=== PATIENT | female | born 1995 | race Caucasian/White ===

== ENCOUNTER → 2017-08-06 | Outpatient (CLI) | payer OTHER ==
[2017-08-06 10:24] LABS: Basophils # (A) 0.1 k/uL (0-0.2); Basophils % (A) 1 %; Eosinophils # (A) 0.5 k/uL (0-0.7); Eosinophils % (A) 7 %; HCT 41.6 % (34.0-46.0); HGB 14.5 gm/dL (11.4-16.0); Lymphocytes # (A) 1.8 k/uL (1.0-4.8); Lymphocytes % (A) 28 %; MCH 30.8 pg (25.0-35.0); MCHC 34.7 g/dL (31.0-37.0); MCV 88.8 fL (80.0-100.0); Mean Platelet Volume 6.7; Monocytes # (A) 0.3 k/uL (0-1.0); Monocytes % (A) 5 %; Neutrophils # (A) 3.7 k/uL (1.3-7.7); Neutrophils % (A) 58 %; Platelet Count 331 k/uL (150-450); RBC 4.69 m/uL (3.80-5.40); RDW 11.7 % (11.5-15.5); WBC 6.5 k/uL (3.8-10.6)
[2017-08-06 11:00] LABS: ALT 65 U/L (9-52); AST 39 U/L (14-36); Albumin 4.8 g/dL (3.5-5.0); Alkaline Phosphatase 47 U/L (38-126); Anion Gap 13 mmol/L; Blood Urea Nitrogen 15 mg/dL (7-17); Carbon Dioxide 25 mmol/L (22-30); Chloride 103 mmol/L (98-107); Cholesterol 183 mg/dL (<200); Glucose 98 mg/dL (74-99); HDL Cholesterol 65 mg/dL (40-60); LDL Cholesterol,Calculated 106 mg/dL (0-99); Potassium 4.6 mmol/L (3.5-5.1); Sodium 141 mmol/L (137-145); Total Bilirubin 0.5 mg/dL (0.2-1.3); Triglycerides 58 mg/dL (<150)
[2017-08-06 11:12] LABS: T4, Free (Free Thyroxine) 1.14 ng/dL (0.78-2.19)
== END | disposition home or self-care (01) ==
LOC: LABWHC1 09:52
PROVIDERS: ATTEND Family Medicine
DX: R51 Headache (principal); F33.1 Major depressive disorder, recurrent, moderate; M79.7 Fibromyalgia; R61 Generalized hyperhidrosis
CPT/HCPCS: 36415; 80053; 80061; 84439; 84443; 85025

== ENCOUNTER 2019-11-29 19:10 | Emergency (ER) | payer BC, OTHER ==
[2019-11-29 19:28] VITALS: RESP 18; TEMP 99.1
[2019-11-29] MEDS ORDERED: KETOROLAC 60 MG/2 ML VIAL IM STA (20:07)
--- NOTE | 2019-11-29 20:31 | XR ---
EXAMINATION TYPE: XR chest 2V DATE OF EXAM: 11/29/2019 COMPARISON: 03/15/2014 HISTORY: Chest pain TECHNIQUE: Frontal and lateral views of the chest are obtained. FINDINGS: There is no focal air space opacity. No evidence for pneumothorax. No pleural effusion. The cardiac silhouette size is within normal limits. The osseous structures are grossly intact. IMPRESSION: 1. No acute cardiopulmonary process.
--- NOTE | 2019-11-29 20:32 | XR ---
EXAMINATION TYPE: XR shoulder complete RT DATE OF EXAM: 11/29/2019 CLINICAL HISTORY: pain TECHNIQUE: Three views of the right shoulder are obtained. COMPARISON: None FINDINGS: There is no acute fracture/dislocation evident. The acromioclavicular and glenohumeral travis int spaces appear within normal limits. The visualized ribs are intact and unremarkable. IMPRESSION: 1. There is no acute fracture or dislocation. ICD 10 NO FRACTURE, INITIAL EVALUATION
--- NOTE | 2019-11-29 20:37 | XR ---
EXAMINATION TYPE: XR clavicle RT DATE OF EXAM: 11/29/2019 CLINICAL HISTORY: pain TECHNIQUE: 2 views of the right clavicle are submitted. COMPARISON: None FINDINGS: Mildly angulated fracture of the middle one third of the right clavicle. The acromioclavicu lar and glenohumeral joint spaces appear within normal limits. The visualized ribs are intact and un remarkable. IMPRESSION: 1. Mildly angulated fracture of the middle one third of the right clavicle. ICD 10 closed FRACTURE, INITIAL EVALUATION
[2019-11-29] MEDS ORDERED: HYDROcodone/APAP 5-325MG 1 EACH TAB PO STA (21:12)
--- NOTE | 2019-11-29 21:15 | ED ---
Fall HPI - General Chief Complaint: Fall Stated Complaint: Fall, Shoulder injury Time Seen by Provider: 11/29/19 19:35 Source: patient Mode of arrival: ambulatory - History of Present Illness Initial Comments: Patient is a 24-year-old female who was riding her horse as it was walking when it got spooked by a rabbit. She reports that the horse bucked and she fell off onto her right shoulder. The patient is right-hand dominant. Began having pain along the right clavicle. Denies hitting her head or losing consciousness. Denies any neck or back pain. No chest pain or shortness of breath. Denies any numbness, tingling or weakness in her hand. No elbow or wrist pain. Did not take anything for her pain prior to coming into the emergency room. No other alleviating, precipitating or modifying factors - Related Data Home Medications Medication Instructions Recorded Confirmed Pregabalin [Lyrica] 100 mg PO TID PRN 11/29/19 11/29/19 Previous Rx's Medication Instructions Recorded Hydrocodone/Acetaminophen [[place] 1 tab PO Q6HR PRN #12 tab 11/29/19 5-325] Allergies Allergy/AdvReac Type Severity Reaction Status Date / Time No Known Allergies Allergy Verified 11/29/19 21:04 Review of Systems ROS Statement: Those systems with pertinent positive or pertinent negative responses have been documented in the HPI. ROS Other: All systems not noted in ROS Statement are negative. Past Medical History Past Medical History: Fibromyalgia History of Any Multi-Drug Resistant Organisms: None Reported Past Surgical History: No Surgical Hx Reported Past Psychological History: Depression Smoking Status: Never smoker Past Alcohol Use History: Occasional Past Drug Use History: None Reported General Exam Limitations: no limitations Course Vital Signs 11/29/19 19:25 Temperature 99.1 F Pulse Rate 118 H Respiratory 18 Rate Blood Pressure 152/94 O2 Sat by Pulse 99 Oximetry Medical Decision Making - Medical Decision Making Upon arrival patient placed into room 5. Thorough history and physical exam is performed. Patient is neurovascularly intact. She is given 30 mg IM of Toradol. Sent for an x-ray of her chest, right shoulder and clavicle. Patient found to have a mid clavicular fracture. Patient will be placed in sling. Given [place] for pain control. She can alternate taking this with Motrin. Patient provided with a work note. Needs to follow-up with orthopedics. Return to the emergency room for any new or worsening symptoms per patient discharged home in stable condition Disposition Clinical Impression: Fall, Clavicle fracture Disposition: HOME SELF-CARE Condition: Stable Instructions (If sedation given, give patient instructions): Clavicle Fracture (ED) Additional Instructions: Please follow-up with the orthopedic doctor within 1 week. Return to the emergency department for any new or worsening symptoms Prescriptions: Hydrocodone/Acetaminophen [[place] 5-325] 1 tab PO Q6HR PRN #12 tab PRN Reason: Pain Is patient prescribed a controlled substance at d/c from ED?: Yes When asked, does pt state using other controlled substances?: No If prescribed controlled substance>3 days was MAPS reviewed?: Prescribed <3 Days If opioid is for acute pain is fill amount 7 days or less?: Yes If Rx opioid, was Start Talking consent form obtained?: Yes Referrals: James Ma MD [Primary Care Provider] - 1-2 days Titi Bush MD [STAFF PHYSICIAN] - 1-2 days Time of Disposition: 21:15
[2019-11-29 21:31] VITALS: BP 128/78; PULSE 97
== END 2019-11-29 21:31 | disposition home or self-care (01) ==
LOC: EC 19:10
DX: S42.001A Fracture of unspecified part of right clavicle, initial encounter for closed fracture (principal); V80.010A Animal-rider injured by fall from or being thrown from horse in noncollision accident, initial encounter; Y93.52 Activity, horseback riding
CPT/HCPCS: 73000; 73030; 71046; 99283; 96372; J1885

== ENCOUNTER 2020-02-19 17:44 | Emergency (ER) | payer BC ==
[2020-02-19 17:50] VITALS: RESP 18
[2020-02-19 18:35] LABS: Basophils # (A) 0.1 k/uL (0-0.2); Basophils % (A) 1 %; Eosinophils # (A) 0.3 k/uL (0-0.7); Eosinophils % (A) 3 %; HCT 40.3 % (34.0-46.0); HGB 13.8 gm/dL (11.4-16.0); Lymphocytes % (A) 26 %; MCH 31.3 pg (25.0-35.0); MCHC 34.2 g/dL (31.0-37.0); MCV 91.5 fL (80.0-100.0); Mean Platelet Volume 6.7; Monocytes # (A) 0.4 k/uL (0-1.0); Monocytes % (A) 5 %; Neutrophils # (A) 5.1 k/uL (1.3-7.7); Neutrophils % (A) 64 %; Platelet Count 323 k/uL (150-450); RBC 4.41 m/uL (3.80-5.40); RDW 11.5 % (11.5-15.5); WBC 7.9 k/uL (3.8-10.6)
[2020-02-19 18:41] LABS: Appearance,Urine Clear (Clear); Bilirubin,Urine Negative (Negative); Blood,Urine Large (Negative); Color,Urine Yellow; Glucose,Urine (UA) Negative (Negative); Ketones,Urine Trace (Negative); Leukocyte Esterase,Urine Small (Negative); Mucus,Urine Few /hpf; Nitrite,Urine Negative (Negative); Protein,Urine Trace (Negative); RBC,Urine 159 /hpf (0-5); Specific Gravity,Urine 1.027 (1.001-1.035); Squamous Epithelial Cell,Urine 3 /hpf (0-4); WBC,Urine 2 /hpf (0-5)
[2020-02-19 18:46] LABS: African American GFR (CKD) >90 (>60 ml/min/1.73 sqM); Anion Gap 9 mmol/L; Blood Urea Nitrogen 15 mg/dL (7-17); Calcium 10.2 mg/dL (8.4-10.2); Carbon Dioxide 25 mmol/L (22-30); Chloride 105 mmol/L (98-107); Glucose 120 mg/dL (74-99); Non-African American GFR(CKD) >90 (>60 ml/min/1.73 sqM); Sodium 139 mmol/L (137-145)
[2020-02-19 19:03] LABS: HCG,Quantitative Serum 1087.6 mIU/mL
--- NOTE | 2020-02-19 19:40 | US ---
EXAMINATION TYPE: Transabdominal DATE OF EXAM: 02/19/2020 7:13 PM COMPARISON: NONE CLINICAL HISTORY: bleeding +/- 5 weeks . bleeding x 1 day. No hx of miscarriage. . Hx . EXAM PERFORMED: Transvaginal (TV) EXAM MEASUREMENTS: GESTATIONAL AGE / DATING Physician Established: Not yet established. Dates by LMP: (5 weeks/0 days) EDC: 10/21/2020 Dates by First Scan: This is first scan Dates by Current Scan for: Only possible gestational sac seen at this time that does not have normal appearance. (6 weeks/2 days) EDC: 10/12/2020 MATERNAL ANATOMY Uterus: 7.7 x 7.1 x 4.7 cm. Complex area seen within upper endometrium as mentioned below, measurin.2 x 2.4 x 1.1 cm. Right Ovary: 2.9 x 2.3 x 1.8 cm. Left Ovary: 2.9 x 2.3 x 1.9 cm. Area of mixed echogenicity and peripheral vascularity seen measurin.1 x 1.0 x 1.2 cm. Post CDS / Adnexa: Anechoic area seen in cul de sac measurin.5 x 0.8 x 0.4 cm. Anechoic area seen in right adnexa measurin.8 x 1.9 x 1.4 cm. Anechoic area seen in left adnexa measurin.4 x 1. 5 x 0.6 cm. Presence of free fluid: Yes Presence of corpus luteal cyst: Area of mixed echogenicity and peripheral vascularity seen within lef t ovary as mentioned above measurin.1 x 1.0 x 1.2 cm. GESTATION / SURVEY Possible gestational sac with abnormal complex/heterogeneous appearance, MSD: 1.89 cm (6 weeks/2 days ) Yolk Sac (normal less than 6mm): Possible yolk sac measures 2.1 mm. Heart Rate: No definite pole or heart tones seen at this time. IUP: No definite pole seen at this time. Date of LMP: 01/15/2020 Beta HcG (if available): 1,087.6 IMPRESSION: Indeterminate area within the endometrium is noted, findings could represent retained products of con ception, follow-up suggested, consider CLAMP REMOVER consult
--- NOTE | 2020-02-19 20:55 | ED ---
General Adult HPI - General Chief complaint: Vaginal Bleeding Stated complaint: Female New Preg Time Seen by Provider: 02/19/20 17:52 Source: patient, RN notes reviewed, old records reviewed Mode of arrival: ambulatory Limitations: no limitations - History of Present Illness Initial comments: 24-year-old female patient was evaluated for evaluation of vaginal bleeding. Patient last disappeared was about 5 weeks ago. Patient reports that she took a test yesterday and was positive. Later that day she began having some vaginal spotting. Nausea and passing a small amount of clots. Denies any pain. Patient had 2 prior pregnancies which she intentionally terminated. Denies any other acute complaints. Systemic: Pt denies fatigue, fever/chills, rash. Pt denies weakness, night sweats, weight loss. Neuro: Pt denies headache, visual disturbances, syncope or pre-syncope. HEENT: Pt denies ocular discharge or irritation, otalgia, rhinorrhea, pharyngitis or notable lymphadenopathy. Cardiopulmonary: Pt denies chest pain, SOB, heart palpitations, dyspnea on exertion. Abdominal/GI: Pt denies abdominal pain, n/v/d. : Pt denies dysuria, burning w/ urination, frequency/urgency. Denies new onset urinary or bowel incontinence. MSK: Pt denies myalgia, loss of strength or function in extremities. Neuro: Pt denies new onset weakness, paresthesias. - Related Data Home Medications Medication Instructions Recorded Confirmed Pregabalin [Lyrica] 100 mg PO TID PRN 11/29/19 11/29/19 Previous Rx's Medication Instructions Recorded Hydrocodone/Acetaminophen [[place] 1 tab PO Q6HR PRN #12 tab 11/29/19 5-325] Allergies Allergy/AdvReac Type Severity Reaction Status Date / Time No Known Allergies Allergy Verified 02/19/20 17:50 Review of Systems ROS Statement: Those systems with pertinent positive or pertinent negative responses have been documented in the HPI. ROS Other: All systems not noted in ROS Statement are negative. Past Medical History Past Medical History: Fibromyalgia History of Any Multi-Drug Resistant Organisms: None Reported Past Surgical History: No Surgical Hx Reported Past Psychological History: Depression Smoking Status: Never smoker Past Alcohol Use History: Occasional Past Drug Use History: None Reported General Exam - General Exam Comments Initial Comments: Constitutional: NAD, AOX3, Pt has pleasant affect. HEENT: NC/AT, trachea midline, neck supple, no lymphadenopathy. External ears appear normal, without discharge. Mucous membranes moist. Eyes PERRLA, EOM intact. There is no scleral icterus. No pallor noted. Cardiopulmonary: RRR, no murmurs, rubs or gallops, no JVD noted. Lungs CTAB in anterior and posterior valentin. No peripheral edema. Abdominal exam: Abdomen soft and non-distended. Abdomen non-tender to palpation in all 4 quadrants. Bowel sounds active in LLQ. No hepatosplenomegaly. No ecchymosis Neuro: CN II-XII grossly intact. No nuchal rigidity. MSK: Full active ROM in upper and lower extremities, 5/5 stregnth. Limitations: no limitations Course Vital Signs 02/19/20 02/19/20 17:46 19:57 Temperature 98.8 F Pulse Rate 110 H 114 H Respiratory 18 18 Rate Blood Pressure 167/94 145/89 O2 Sat by Pulse 100 100 Oximetry Medical Decision Making - Medical Decision Making 24-year-old female patient was evaluated for evaluation of vaginal bleeding. Patient last disappeared was about 5 weeks ago. Patient reports that she took a test yesterday and was positive. Later that day she began having some vaginal spotting. Nausea and passing a small amount of clots. Denies any pain. Patient had 2 prior pregnancies which she intentionally terminated. Denies any other acute complaints. Physical exam did not display acute pathology. A pelvic exam was performed by Edel Macdonald, this displayed minimal blood in posterior vaginal vault closed cervical os, no adnexal tenderness pink mucosa, no lesions or ulcerations. Laboratory investigations were obtained hCG Quant is 1087. UA displayed his blood. Patient has a be positive. Ultrasound did display possible products of conception however no pole is identified. I did advise patient to follow up with REGISTERED VETERINARY TECHNICIAN tomorrow she reports that she already touched base with the,. Also advised patient to take vitamins until final outcome determined and return to ED with any worsening symptoms. Case discussed with Dr. Hernandez. - Lab Data Result diagrams: 02/19/20 18:02/19/20 18:20 Lab Results 02/19/20 02/19/20 02/19/20 Range/Units 18:20 18:20 18:20 WBC 7.9 (3.8-10.6) k/uL RBC 4.41 (3.80-5.40) m/uL Hgb 13.8 (11.4-16.0) gm/dL Hct 40.3 (34.0-46.0) % MCV 91.5 (80.0-100.0) fL MCH 31.3 (25.0-35.0) pg MCHC 34.2 (31.0-37.0) g/dL RDW 11.5 (11.5-15.5) % Plt Count 323 (150-450) k/uL Neutrophils % 64 % Lymphocytes % 26 % Monocytes % 5 % Eosinophils % 3 % Basophils % 1 % Neutrophils # 5.1 (1.3-7.7) k/uL Lymphocytes # 2.0 (1.0-4.8) k/uL Monocytes # 0.4 (0-1.0) k/uL Eosinophils # 0.3 (0-0.7) k/uL Basophils # 0.1 (0-0.2) k/uL Sodium 139 (137-145) mmol/L Potassium 4.0 (3.5-5.1) mmol/L Chloride 105 (98-107) mmol/L Carbon Dioxide 25 (22-30) mmol/L Anion Gap 9 mmol/L BUN 15 (7-17) mg/dL Creatinine 0.66 (0.52-1.04) mg/dL Est GFR (CKD-EPI)AfAm >90 (>60 ml/min/1.73 sqM) Est GFR (CKD-EPI)NonAf >90 (>60 ml/min/1.73 sqM) Glucose 120 H (74-99) mg/dL Calcium 10.2 (8.4-10.2) mg/dL HCG, Quant 1087.6 mIU/mL Urine Color Yellow Urine Appearance Clear (Clear) Urine pH 7.0 (5.0-8.0) Ur Specific [place] 1.027 (1.001-1.035) Urine Protein Trace H (Negative) Urine Glucose (UA) Negative (Negative) Urine Ketones Trace H (Negative) Urine Blood Large H (Negative) Urine Nitrite Negative (Negative) Urine Bilirubin Negative (Negative) Urine Urobilinogen 2.0 (<2.0) mg/dL Ur Leukocyte Esterase Small H (Negative) Urine RBC 159 H (0-5) /hpf Urine WBC 2 (0-5) /hpf Ur Squamous Epith Cells 3 (0-4) /hpf Urine Mucus Few H (None) /hpf Blood Type Blood Type Recheck Bld Type Recheck Status 02/19/20 Range/Units 18:27 WBC (3.8-10.6) k/uL RBC (3.80-5.40) m/uL Hgb (11.4-16.0) gm/dL Hct (34.0-46.0) % MCV (80.0-100.0) fL MCH (25.0-35.0) pg MCHC (31.0-37.0) g/dL RDW (11.5-15.5) % Plt Count (150-450) k/uL Neutrophils % % Lymphocytes % % Monocytes % % Eosinophils % % Basophils % % Neutrophils # (1.3-7.7) k/uL Lymphocytes # (1.0-4.8) k/uL Monocytes # (0-1.0) k/uL Eosinophils # (0-0.7) k/uL Basophils # (0-0.2) k/uL Sodium (137-145) mmol/L Potassium (3.5-5.1) mmol/L Chloride (98-107) mmol/L Carbon Dioxide (22-30) mmol/L Anion Gap mmol/L BUN (7-17) mg/dL Creatinine (0.52-1.04) mg/dL Est GFR (CKD-EPI)AfAm (>60 ml/min/1.73 sqM) Est GFR (CKD-EPI)NonAf (>60 ml/min/1.73 sqM) Glucose (74-99) mg/dL Calcium (8.4-10.2) mg/dL HCG, Quant mIU/mL Urine Color Urine Appearance (Clear) Urine pH (5.0-8.0) Ur Specific [place] (1.001-1.035) Urine Protein (Negative) Urine Glucose (UA) (Negative) Urine Ketones (Negative) Urine Blood (Negative) Urine Nitrite (Negative) Urine Bilirubin (Negative) Urine Urobilinogen (<2.0) mg/dL Ur Leukocyte Esterase (Negative) Urine RBC (0-5) /hpf Urine WBC (0-5) /hpf Ur Squamous Epith Cells (0-4) /hpf Urine Mucus (None) /hpf Blood Type AB Positive Blood Type Recheck AB Pos Bld Type Recheck Status [facility] ONLY Disposition Clinical Impression: Vaginal bleeding Disposition: HOME SELF-CARE Condition: Stable Instructions (If sedation given, give patient instructions): Threatened Miscarriage (ED), Miscarriage (ED) Additional Instructions: Follow up with REGISTERED VETERINARY TECHNICIAN first thing tomorrow. Return to ED with any worsening symptoms. Have repeat HCG in 24 hours drawn. Follow up with PCP in 1-2 days. Is patient prescribed a controlled substance at d/c from ED?: No Referrals: James Ma MD [Primary Care Provider] - 1-2 days Kolby Lr DO [Doctor of Osteopathic Medicine] - 1-2 days
[2020-02-19 21:22] VITALS: BP 123/90; PULSE 98; TEMP 97.8
== END 2020-02-19 21:22 | disposition home or self-care (01) ==
LOC: EC 17:44
DX: O20.9 Hemorrhage in early pregnancy, unspecified (principal); O99.351 Diseases of the nervous system complicating pregnancy, first trimester; M79.7 Fibromyalgia; Z3A.01 Less than 8 weeks gestation of pregnancy
CPT/HCPCS: 36415; 76801; 76817; 80048; 81001; 84702; 85025; 86900; 86901; 99284

== ENCOUNTER 2020-12-03 12:49 | Inpatient (IN) | payer BC ==
[2020-12-03 13:34] LABS: Basophils % (A) 0 %; Eosinophils # (A) 0.2 k/uL (0-0.7); Eosinophils % (A) 2 %; HCT 37.2 % (34.0-46.0); HGB 12.7 gm/dL (11.4-16.0); Lymphocytes # (A) 1.6 k/uL (1.0-4.8); Lymphocytes % (A) 19 %; MCH 30.8 pg (25.0-35.0); MCHC 34.1 g/dL (31.0-37.0); MCV 90.2 fL (80.0-100.0); Mean Platelet Volume 8.4; Monocytes # (A) 0.4 k/uL (0-1.0); Monocytes % (A) 5 %; Neutrophils % (A) 72 %; Platelet Count 236 k/uL (150-450); RBC 4.12 m/uL (3.80-5.40); RDW 12.9 % (11.5-15.5); WBC 8.3 k/uL (3.8-10.6)
[2020-12-03 13:43] LABS: ALT 14 U/L (4-34); AST 20 U/L (14-36); African American GFR (CKD) >90 (>60 ml/min/1.73 sqM); Blood Urea Nitrogen 14 mg/dL (7-17); LDH 428 U/L (313-618); Non-African American GFR(CKD) >90 (>60 ml/min/1.73 sqM); Uric Acid 7.6 mg/dL (3.7-7.4)
[2020-12-03 13:47] LABS: Appearance,Urine Cloudy (Clear); Bacteria,Urine Occasional /hpf; Bilirubin,Urine Negative (Negative); Blood,Urine Small (Negative); Color,Urine Yellow; Glucose,Urine (UA) Negative (Negative); Ketones,Urine Negative (Negative); Leukocyte Esterase,Urine Negative (Negative); Mucus,Urine Many /hpf; Nitrite,Urine Negative (Negative); PH, Urine 6.5 (5.0-8.0); Protein,Urine 3+ (Negative); RBC,Urine 3 /hpf (0-5); Specific Gravity,Urine 1.033 (1.001-1.035); Squamous Epithelial Cell,Urine 4 /hpf (0-4); Urobilinogen,Urine <2.0 mg/dL (<2.0); WBC,Urine 4 /hpf (0-5)
[2020-12-03] MEDS: LABETALOL 100 MG TAB PO SCH (14:49)
[2020-12-03] MEDS: BETAMET ACET-BETAMETH SOD PHOS 6 MG/ML MDV IM SCH (14:50)
[2020-12-03 20:58] LABS: Glucose,Whole Blood 137 mg/dL (75-99)
[2020-12-03] MEDS ORDERED: LABETALOL 100 MG TAB PO ONE (21:00)
[2020-12-04 06:51] LABS: Basophils % (A) 0 %; Eosinophils % (A) 0 %; HCT 36.5 % (34.0-46.0); HGB 12.4 gm/dL (11.4-16.0); Lymphocytes # (A) 0.9 k/uL (1.0-4.8); Lymphocytes % (A) 8 %; MCH 30.7 pg (25.0-35.0); MCHC 33.9 g/dL (31.0-37.0); MCV 90.6 fL (80.0-100.0); Mean Platelet Volume 8.6; Monocytes # (A) 0.3 k/uL (0-1.0); Monocytes % (A) 3 %; Neutrophils # (A) 9.4 k/uL (1.3-7.7); Neutrophils % (A) 88 %; Platelet Count 245 k/uL (150-450); RBC 4.02 m/uL (3.80-5.40); RDW 12.8 % (11.5-15.5); WBC 10.7 k/uL (3.8-10.6)
[2020-12-04 06:59] LABS: ALT 12 U/L (4-34); AST 18 U/L (14-36); African American GFR (CKD) >90 (>60 ml/min/1.73 sqM); Blood Urea Nitrogen 16 mg/dL (7-17); LDH 572 U/L (313-618); Non-African American GFR(CKD) >90 (>60 ml/min/1.73 sqM); Uric Acid 8.1 mg/dL (3.7-7.4)
[2020-12-04 07:49] LABS: Glucose,Whole Blood 106 mg/dL (75-99)
[2020-12-04] MEDS ORDERED: LABETALOL 200 MG TAB PO STA (08:33)
[2020-12-04] MEDS: LABETALOL 100 MG TAB PO SCH (09:08)
[2020-12-04 14:51] LABS: Glucose,Whole Blood 124 mg/dL (75-99)
[2020-12-04] MEDS: BETAMET ACET-BETAMETH SOD PHOS 6 MG/ML MDV IM SCH (14:51)
[2020-12-04 15:29] LABS: Total Volume 24 Hour,Urine 1150 mls (800-1800)
[2020-12-04 15:52] LABS: Total Protein 24 Hour,Urine 6900 mg/24hr (42.0-225.0)
[2020-12-04] MEDS ORDERED: hydrALAZINE HCL 20 MG/ML 1 ML VIAL IVP PRN (16:35)
[2020-12-04] MEDS ORDERED: LABETALOL 5 MG/ML VIAL MDV IVP PRN ×3 (16:35)
[2020-12-04] MEDS ORDERED: MAGNESIUM SULFATE GM 6 GM in SODIUM CHLORIDE 0.9% 100 ML IVPB ONE (17:00)
[2020-12-04] MEDS ORDERED: MAGNESIUM SULFATE-WATER PMX 4 GM in WATER FOR INJECTION 1 100ML.BAG IVPB ONE (17:00)
[2020-12-04] MEDS ORDERED: CITRIC ACID-SODIUM CITRATE 15 ML CUP PO ONE (17:23)
[2020-12-04] MEDS ORDERED: PREGABALIN 75 MG CAP PO PRN (17:25)
[2020-12-04] MEDS ORDERED: LACTATED RINGERS 1,000 ML IV ONE (17:45)
[2020-12-04] MEDS ORDERED: KETOROLAC 15 MG/ML 1 ML VIAL ONE (17:57)
[2020-12-04] MEDS ORDERED: OXYTOCIN 30 UNITS/500 ML NS BAG IV ONE (17:57)
[2020-12-04] MEDS ORDERED: MORPHINE SULFATE (PF) 0.3 MG/0.3 ML SYR ONE (17:57)
[2020-12-04] MEDS ORDERED: NALBUPHINE 10 MG/ML (1 ML AMP) ONE (17:57)
[2020-12-04] MEDS ORDERED: SIMETHICONE 80 MG CHEWABLE PO PRN (18:42)
[2020-12-04] MEDS ORDERED: METOCLOPRAMIDE 5 MG/ML 2 ML VIAL IVP PRN (18:42)
[2020-12-04] MEDS ORDERED: ZOLPIDEM 5 MG TAB PO PRN (18:42)
[2020-12-04] MEDS ORDERED: NALOXONE 0.4 MG/ML 1 ML VIAL IV PRN (18:42)
[2020-12-04] MEDS ORDERED: ONDANSETRON 4 MG/2 ML VIAL IVP PRN (18:42)
[2020-12-04] MEDS ORDERED: diphenhydrAMINE 50 MG CAP PO PRN (18:42)
[2020-12-04] MEDS ORDERED: diphenhydrAMINE 25 MG CAP PO PRN (18:42)
[2020-12-04] MEDS ORDERED: diphenhydrAMINE 50 MG/ML 1 ML VIAL IVP PRN ×2 (18:42)
[2020-12-04] MEDS ORDERED: OXYTOCIN 30 UNITS/500 ML NS 30 UNIT in SALINE 1 500ML.BAG IV SCH (18:45)
--- NOTE | 2020-12-04 18:51 | P.OP ---
Date of Procedure: 12/04/20 Preoperative Diagnosis: IUP at 36-0/7 weeks, preeclampsia with severe features remote from delivery, gestational diabetes diet controlled Postoperative Diagnosis: Same Procedure(s) Performed: Primary low transverse section Anesthesia: spinal Surgeon: Naheed Beck Data Reporting Analyst #1: Josefa Mcguire Estimated Blood Loss (ml): 500 IV fluids (ml): 700 Urine output (ml): 300 Pathology: other (Placenta) Condition: stable Disposition: observation Indications for Procedure: 25-year-old 1 para 0 at 36-0/7 weeks that was seen in the office yesterday for routine visit and noted 3+ proteinuria. Patient was sent to the hospital for continued monitoring. Patient's blood pressures were noted to be 140s over 90s and 24-hour urine collection was begun. Over the night patient had elevated blood pressures 150s over 100s resolved with oral labetalol. Patient's blood pressures remained elevated she denies symptoms of preeclampsia at this time. 24 urine collection did come back greater than 6000. Magnesium 4 g bolus was begun. Patient was counseled on need for primary C- section secondary to severe preeclampsia remote from delivery. Patient stated understanding and was taken back to the operating suite. Operative Findings: Fundal fibroid 5 cm was appreciated and the uterus, normal ovaries were appreciated. Viable female was delivered at 1814, weight of 5 lbs. 7 oz., Apgars of 7 and 9 at one and 5 minutes respectively. Description of Procedure: Patient was taken back to the operating suite where spinal anesthesia was found be adequate by the anesthesia department. She was then prepped and draped in normal sterile fashion in the dorsal supine position. A Pfannenstiel skin incision is made the scalpel and carried through the underlying layer of fascia. The fascia was then incised in the midline and incision was extended laterally. The superior aspect of the fascial incision was then grasped jacey clamps, e levated and underlying rectus muscles dissected off sharply. The inferior aspect of the fascial incision was then grasped with Jacey clamps, elevated and underlying rectus muscles dissected off sharply. The rectus muscles were in the midline the peritoneum was entered. This incision was then extended superiorly and inferiorly with good visualization the bladder. The bladder blade was then inserted into the pelvis the vesicouterine peritoneum was visualized and the bladder flap was created using sharp and blunt dissection. Hysterotomy incision was preformed anterior placenta was appreciated amniotomy was performed and clear fluid was obtained. The infant was noted to be in the vertex presentation. The was delivered in the usual fashion the umbilical cord was doubly clamped and cut and the was handed off to awaiting RN. The placenta was then delivered manually and the uterus was cleared of all clots and debris. The uterus was delivered from the abdomen. The uterine incision was then closed with 0 Vicryl in a running locked fashion. A second imbricating suture was performed. The hysterotomy incision was inspected and found to be hemostatic. The gutters were cleared of all clots and debris. The uterus was returned to the abdomen. On inspection of the hysterotomy incision bleeding was noted on the midportion of the incision therefore a [id number] suture was used to obtain hemostasis. Hemostasis was appreciated. The peritoneum was then loosely reapproximated the rectus muscles inspected and found to be hemostatic. The fascia was then closed with 0 Vicryl in a running fashion from one lateral edge the midline and the other lateral edge the midline. The subcu tissue was then irrigated hemostasis was appreciated. The subcu tissue was then closed with 3-0 Vicryl in a running fashion. The skin was then closed with 4-0 Vicryl in a subcuticular fashion. Steri-Strips and sterile dressings were applied. All counts were noted to be correct 2. Patient and infant tolerated delivery well and are resting comfortably.
--- NOTE | 2020-12-04 18:52 | P.HPOB ---
History of Present Illness H&P Date: 12/04/20 Chief Complaint: IUP at 35 and 6, new-onset proteinuria, htn This is a 25-year-old at 35 and 6 that was seen in the office today with new onset of proteinuria. Patient had noted 3+ protein on her urine dip. Blood pressures were noted to be normal. Patient does take labetalol 100 mg po for hypertension. Patient has been well controlled. Patient denies any signs or symptoms of preeclampsia including headache, abdominal pain, changes in vision. Patient is noting good movement. Patient had labs done on admission to the hospital which were essentially normal in nature. She is currently in the process of a 24-hour urine. Repeat labs this morning for essentially stable from yesterday. Patient did have an elevated blood pressure overnight received an additional dose of 100 mg of labetalol. Initial blood pressure this morning 150s over low 100s. 200 mg of labetalol was given orally. Review of Systems Constitutional: Denies fatigue, Denies fever Ears, nose, mouth and throat: Denies headache Cardiovascular: Reports leg edema Respiratory: Denies dyspnea Gastrointestinal: Denies constipation, Denies diarrhea, Denies nausea, Denies vomiting Genitourinary: Reports Past Medical History Past Medical History: Fibromyalgia Additional Past Medical History / Comment(s): gestational diabetes History of Any Multi-Drug Resistant Organisms: None Reported Past Surgical History: No Surgical Hx Reported Past Anesthesia/Blood Transfusion Reactions: No Reported Reaction Past Psychological History: Depression Additional Psychological History / Comment(s): pt on lyrica Smoking Status: Never smoker Past Alcohol Use History: Occasional Past Drug Use History: None Reported - Past Family History Father Family Medical History: No Reported History Medications and Allergies Home Medications Medication Instructions Recorded Confirmed Type Pregabalin [Lyrica] 75 mg PO TID PRN 11/29/19 12/03/20 History Labetalol HCl 100 mg PO DAILY 10/24/20 12/03/20 History Pnv No.95/Ferrous Fum/Folic AC 1 each PO DAILY 10/24/20 12/03/20 History [ Multivitamin Tablet] Allergies Allergy/AdvReac Type Severity Reaction Status Date / Time No Known Allergies Allergy Verified 12/03/20 13:09 Exam Osteopathic Statement: *. No significant issues noted on an osteopathic structural exam other than those noted in the History and Physical/Consult. Vital Signs Temp Pulse Resp BP 12/03/20 20:50 109 H 141/96 12/03/20 14:47 98.0 F 80 18 147/109 Targeted physical exam is performed in this date and icu rn a well-nourished well-developed female in no acute distress, breathing is nonlabored, heart has regular rhythm, abdomen is gravid and appropriate for gestational age, cervical exam is deferred this morning. Category 1 heart tones are appreciated and she is dex irregularly. Results Result Diagrams: 12/04/20 06:17 12/04/20 06:17 Abnormal Lab Results - Last 24 Hours (Table) 12/03/20 12/03/20 12/03/20 Range/Units 13:00 13:15 20:56 WBC (3.8-10.6) k/uL Neutrophils # (1.3-7.7) k/uL Lymphocytes # (1.0-4.8) k/uL POC Glucose (mg/dL) 137 H (75-99) mg/dL Uric Acid 7.6 H (3.7-7.4) mg/dL Urine Appearance Cloudy H (Clear) Urine Protein 3+ H (Negative) Urine Blood Small H (Negative) Urine Bacteria Occasional H (None) /hpf Urine Mucus Many H (None) /hpf 12/04/20 12/04/20 12/04/20 Range/Units 06:17 06:17 07:48 WBC 10.7 H (3.8-10.6) k/uL Neutrophils # 9.4 H (1.3-7.7) k/uL Lymphocytes # 0.9 L (1.0-4.8) k/uL POC Glucose (mg/dL) 106 H (75-99) mg/dL Uric Acid 8.1 H (3.7-7.4) mg/dL Urine Appearance (Clear) Urine Protein (Negative) Urine Blood (Negative) Urine Bacteria (None) /hpf Urine Mucus (None) /hpf Assessment and Plan (1) 35 to 36 weeks gestation of Current Visit: Yes Status: Acute Code(s): GZB0252 - SNOMED Code(s): 607024652 (2) HTN (hypertension) Current Visit: Yes Status: Acute Code(s): I10 - ESSENTIAL (PRIMARY) HYPERTENSION SNOMED Code(s): 11846572 (3) Proteinuria Current Visit: Yes Status: Acute Code(s): R80.9 - PROTEINURIA, UNSPECIFIED SNOMED Code(s): 89336541 Plan: 25-year-old at 35 and 6 that presented for new onset of proteinuria. Patient is currently undergoing 24 hour urine collection. Patient has noted elevated blood pressures that has been controlled throughout most of the with 100 mg of labetalol daily. Patient admits to running out of her labetalol in the pharmacy was unable to fill the perception for multiple days. Patient denies any signs or symptoms of preeclampsia. Patient did receive Celestone yesterday and will receive a second dose today. 24 urine collection is complete around 1400.
[2020-12-04] MEDS: MAGNESIUM SULFATE-WATER PMX 20 GM in WATER FOR INJECTION 1 500ML.BAG IV SCH (19:01)
[2020-12-04] MEDS: LACTATED RINGERS 1,000 ML IV SCH (20:30)
[2020-12-04 20:52] LABS: HCT 35.4 % (34.0-46.0); HGB 11.6 gm/dL (11.4-16.0); MCH 30.7 pg (25.0-35.0); MCHC 32.7 g/dL (31.0-37.0); Mean Platelet Volume 8.1; Platelet Count 250 k/uL (150-450); RBC 3.77 m/uL (3.80-5.40); RDW 13.7 % (11.5-15.5); WBC 10.8 k/uL (3.8-10.6)
[2020-12-04 21:01] LABS: ALT 13 U/L (4-34); AST 19 U/L (14-36); African American GFR (CKD) >90 (>60 ml/min/1.73 sqM); Blood Urea Nitrogen 16 mg/dL (7-17); Non-African American GFR(CKD) >90 (>60 ml/min/1.73 sqM); Uric Acid 8.3 mg/dL (3.7-7.4)
[2020-12-04] MEDS: ACETAMINOPHEN IV (For NPO) 1,000 MG in EMPTY BAG 1 BAG IVPB SCH (21:28)
[2020-12-04] MEDS: SENNOSIDES-DOCUSATE SODIUM 1 EACH TAB PO SCH (21:35)
[2020-12-05] MEDS: IBUPROFEN IV 800 MG in SODIUM CHLORIDE 0.9% 250 ML IV SCH ×4 (05:00→23:23)
[2020-12-05] MEDS: MAGNESIUM SULFATE-WATER PMX 20 GM in WATER FOR INJECTION 1 500ML.BAG IV SCH ×3 (05:13→15:39)
--- NOTE | 2020-12-05 07:51 | P.PNOBGPC ---
Subjective - Subjective Principal diagnosis: Postop day 1 status post primary Interval history: Patient did well overnight. Antonieta remains as she continues on magnesium infusion secondary to severe preeclampsia. Blood pressures overnight were noted to be stable 1 teens to 120s over 80s. Patient states she is overall feeling well this morning. She denies pain. Patient reports: Reports appetite normal, Reports pain well controlled : doing well, nursing well Objective - Vital Signs Latest vital signs: Vital Signs Temp Pulse Resp BP Pulse Ox 12/05/20 05:00 97.8 F 78 16 132/87 98 12/05/20 04:00 68 16 113/72 98 12/05/20 03:00 74 16 111/72 98 12/05/20 02:00 81 16 129/84 12/05/20 01:00 98.0 F 94 16 116/71 12/05/20 00:00 75 16 119/73 12/04/20 23:00 96.5 F L 67 16 121/79 12/04/20 22:15 74 16 125/78 12/04/20 21:15 74 16 125/78 98 12/04/20 20:41 96.7 F L 67 16 113/64 96 12/04/20 20:11 72 16 120/69 97 12/04/20 20:00 72 16 124/73 97 12/04/20 19:41 65 16 132/73 97 12/04/20 19:26 97.6 F 83 16 141/78 98 12/04/20 19:11 97.6 F 92 16 136/74 98 12/04/20 18:56 91 16 136/78 98 12/04/20 18:41 97.0 F L 95 16 137/74 98 12/04/20 12:08 96.6 F L 96 16 144/87 Intake and Output 12/04/20 12/05/20 12/05/20 22:59 06:59 14:59 Intake Total 700 750 Output Total 1200 1200 Balance -500 -450 Intake: IV 700 Intake, IV Titration 750 Amount Ibuprofen IV 800 mg In 250 Sodium Chloride 0.9% 250 ml @ 500 mls/hr IV Q6HR [facility] Rx#:[id number] Magnesium Sulfate-Water 500 Pmx 20 gm In Water For Injection 1 500ml.bag @ 2 GM/HR 50 mls/hr IV .Q10H [facility] Rx#:[id number] Output: Urine 700 1200 Estimated Blood Loss 500 Other: Voiding Method Indwelling Catheter - Exam Extremities: Present: normal, edema Abdomen: Present: normal appearance, soft Incision: Present: normal, intact Uterus: Present: normal, firm - Labs Labs: Abnormal Lab Results - Last 24 Hours (Table) 12/04/20 12/04/20 12/04/20 Range/Units 07:48 13:00 14:49 WBC (3.8-10.6) k/uL RBC (3.80-5.40) m/uL POC Glucose (mg/dL) 106 H 124 H (75-99) mg/dL Uric Acid (3.7-7.4) mg/dL U Tot Protein 24h, Calc 6900 H (42.0-225.0) mg/24hr 12/04/20 12/04/20 Range/Units 20:35 20:35 WBC 10.8 H (3.8-10.6) k/uL RBC 3.77 L (3.80-5.40) m/uL POC Glucose (mg/dL) (75-99) mg/dL Uric Acid 8.3 H (3.7-7.4) mg/dL U Tot Protein 24h, Calc (42.0-225.0) mg/24hr Assessment and Plan (1) 35 to 36 weeks gestation of Current Visit: Yes Status: Acute Code(s): DJC3521 - SNOMED Code(s): 268896418 (2) HTN (hypertension) Current Visit: Yes Status: Acute Code(s): I10 - ESSENTIAL (PRIMARY) HYPERTENSION SNOMED Code(s): 88699490 (3) Proteinuria Current Visit: Yes Status: Acute Code(s): R80.9 - PROTEINURIA, UNSPECIFIED SNOMED Code(s): 17758343 (4) Pre-eclampsia Narrative/Plan: Remote from delivery Current Visit: Yes Status: Acute Code(s): O14.90 - UNSPECIFIED PRE- ECLAMPSIA, UNSPECIFIED TRIMESTER SNOMED Code(s): 757033092 (5) S/P section Current Visit: Yes Status: Acute Code(s): Z98.891 - HISTORY OF UTERINE SCAR FROM PREVIOUS SURGERY SNOMED Code(s): 153870848 Plan: This 25-year-old G1 now P1 status post primary performed for severe preeclampsia remote from delivery. Patient underwent observation with 24-hour urine collection the day prior revealing 6000+ milligrams of protein. Patient had noted elevated blood pressures in addition. Once results were completed and discussed with patient options were reviewed. Patient was counseled on primary given severity of preeclampsia and remoteness from delivery. Patient opted for primary . Patient has done well postoperatively. We'll plan to continue magnesium infusion for 24 hours status post delivery. Awaiting preeclampsia labs this morning. Plan to continue close observation.
--- NOTE | 2020-12-05 10:42 | P.PN ---
Progress Note - Text Progress Note Date: 12/05/20 Patient seen and examined. POD 1 s/p for preeclampsia with severe features. Patient receives spinal with duramorph for . Procedure well tolerated yesterday without complications. Patient is doing well today without difficulty ambulating or urinating. Patient reports no numbness. Patient denies ANTHONY, N/V, F/C. Pain well controlled.
[2020-12-05] MEDS: ACETAMINOPHEN IV (For NPO) 1,000 MG in EMPTY BAG 1 BAG IVPB SCH ×2 (10:51→11:16)
[2020-12-05] MEDS: IBUPROFEN 600 MG TAB PO SCH ×3 (10:51→23:23)
[2020-12-05] MEDS: SENNOSIDES-DOCUSATE SODIUM 1 EACH TAB PO SCH ×2 (10:51→23:22)
[2020-12-05] MEDS: LACTATED RINGERS 1,000 ML IV SCH (10:52)
[2020-12-05] MEDS: ACETAMINOPHEN TAB 500 MG TAB PO SCH ×3 (10:52→22:30)
[2020-12-05] MEDS: PRENATAL VIT-IRON-FOLIC ACID 1 EACH CAP PO SCH (10:52)
[2020-12-05] MEDS: LABETALOL 100 MG TAB PO SCH (10:52)
[2020-12-06] MEDS: IBUPROFEN 600 MG TAB PO SCH ×3 (04:21→10:12)
[2020-12-06] MEDS: ACETAMINOPHEN TAB 500 MG TAB PO SCH ×3 (04:23→13:43)
[2020-12-06] MEDS: SENNOSIDES-DOCUSATE SODIUM 1 EACH TAB PO SCH (08:13)
--- NOTE | 2020-12-06 09:56 | P.DS ---
Providers Date of admission: 12/03/20 14:26 Expected date of discharge: 12/06/20 Attending physician: Naheed Beck Primary care physician: Stated None - Discharge Diagnosis(es) (1) 35 to 36 weeks gestation of Current Visit: Yes Status: Acute (2) HTN (hypertension) Current Visit: Yes Status: Acute (3) Proteinuria Current Visit: Yes Status: Acute (4) Pre-eclampsia Current Visit: Yes Status: Acute (5) S/P section Current Visit: Yes Status: Acute Hospital Course: This is a 25-year-old 1 now para 1 status post primary . Patient presented to the office on 12/04 for routine visit with new onset of proteinuria. Patient was noted to have 3+ protein on her urine dip. Blood pressures were noted to be normal in the office. Patient was to be taking 100 mg of labetalol daily. Patient was sent to OB triage for further evaluation. Blood pressures on triage were noted to be 140s over 90s, 150s over high 90s. Patient was asymptomatic. Patient states she hadn't been taking her labetalol for approximately 3 days. Her labetalol was restarted and a 24 hour urine collection was begun. steroids were given at that time. Patient completed her 24 urine protein collection which revealed greater than 6000 mg of protein. Patient was counseled on preeclampsia, blood pressures noted to be 150s over 100s, 160s over 100s. Patient remained asymptomatic. Patient elected primary after discussion. Prior to the patient was given 4 g of magnesium, and magnesium infusion was continued for 24 hours post-operatively. Patient was taken back for primary secondary to severe preeclampsia, remote from delivery. Patient did well with primary C- section. For full details of the please see the dictated operative report. Postoperatively patient has done well. Blood pressures 120s to 130s over 80s. Patient remains asymptomatic. She is ambulating and voiding without difficulty. She states she is tolerating a regular diet without nausea or vomiting. She states her pain is well-controlled. She would like discharge home if possible. She states she will obtain a home blood pressure monitor. She does have labetalol at home in addition. She has not received any oral labetalol since delivery. Patient Condition at Discharge: Good Plan - Discharge Summary New Discharge Prescriptions: No Action Pregabalin [Lyrica] 75 mg PO TID PRN PRN Reason: Pain Labetalol HCl 100 mg PO DAILY Pnv No.95/Ferrous Fum/Folic AC [ Multivitamin Tablet] 1 each PO DAILY Discharge Medication List Pregabalin [Lyrica] 75 mg PO TID PRN 11/29/19 [History] Labetalol HCl 100 mg PO DAILY 10/24/20 [History] Pnv No.95/Ferrous Fum/Folic AC [ Multivitamin Tablet] 1 each PO DAILY 10/24/20 [History] Follow up Appointment(s)/Referral(s): Naheed Beck DO [Doctor of Osteopathic Medicine] - 1 Week Patient Instructions/Handouts: (DC), (GEN), Preeclampsia and Eclampsia After Delivery (GEN) Discharge Disposition: HOME SELF-CARE
[2020-12-06] MEDS: LABETALOL 100 MG TAB PO SCH (11:14)
[2020-12-06] MEDS: PRENATAL VIT-IRON-FOLIC ACID 1 EACH CAP PO SCH (11:14)
[2020-12-06 15:52] VITALS: BP 135/89; RESP 17
[2020-12-06 16:07] VITALS: PULSE 91; TEMP 99
== END 2020-12-06 16:15 | disposition home or self-care (01) | DRG 788 ==
LOC: FBPOP 12:49 → 4FBP 14:26
PROVIDERS: ADMIT Obstetrics & Gynecology Obstetrics; ATTEND Obstetrics & Gynecology Obstetrics
PROC: 10D00Z1 Extraction of Products of Conception, Low, Open Approach (ICD-10-PCS; principal; 2020-12-04 18:00)
DX: O11.4 Pre-existing hypertension with pre-eclampsia, complicating childbirth (principal); F32.9 Major depressive disorder, single episode, unspecified; O99.343 Other mental disorders complicating pregnancy, third trimester; O99.353 Diseases of the nervous system complicating pregnancy, third trimester; M79.7 Fibromyalgia; O24.429 Gestational diabetes mellitus in childbirth, unspecified control; O34.13 Maternal care for benign tumor of corpus uteri, third trimester; Z20.822 Contact with and (suspected) exposure to COVID-19; Z37.0 Single live birth; Z3A.36 36 weeks gestation of pregnancy; D25.9 Leiomyoma of uterus, unspecified; Z79.899 Other long term (current) drug therapy
CPT/HCPCS: 59025; 81001; 81050; 82565; 83615; 84156; 84450; 84460; 84520; 84550; 85025; 85027; 88307; 88313; 99215

== ENCOUNTER → 2020-12-03 | Outpatient (CLI) | payer BC ==
[2020-12-03 12:59] LABS: Creatinine,Urine Random 364.9 mg/dL
== END | disposition home or self-care (01) ==
LOC: LABWHC1 10:15
PROVIDERS: ATTEND Obstetrics & Gynecology Obstetrics
DX: O13.9 Gestational [pregnancy-induced] hypertension without significant proteinuria, unspecified trimester (principal); O24.419 Gestational diabetes mellitus in pregnancy, unspecified control; Z3A.00 Weeks of gestation of pregnancy not specified
CPT/HCPCS: 36415; 82570; 84156

== ENCOUNTER → 2022-09-02 | Outpatient (CLI) | payer BC ==
--- NOTE | 2022-09-02 14:17 | US ---
EXAMINATION TYPE: US abdomen complete DATE OF EXAM: 09/02/2022 COMPARISON: NONE CLINICAL INDICATION: Female, 27 years old with history of R74.8 ABNORMAL LEVELS OF OTHER SERUM ENZYME S; Abnormal AST and ALT. TECHNIQUE: Multiple sonographic images of the abdomen are obtained. FINDINGS: EXAM MEASUREMENTS: Liver Length: 12.9 cm Gallbladder Wall: 0.21 cm CBD: 0.43 cm Spleen: 10.6 cm Right Kidney: 10.6 x 5.2 x 4.4 cm Left Kidney: 10.9 x 5.4 x 4.9 cm CERAMIC [employer] MACHINE NOTES: Exam is limited due to gas. Pancreas: Not well seen. Liver: Appears very coarse with increased echogenicity. *Hypoechoic area seen near the gallbladder: 2.2 x 1.4 x 0.9 cm. Gallbladder: Appears anechoic Evidence for sonographic Najera's sign: No CBD: Portions seen appear wnl Spleen: Appears wnl Right Kidney: No hydronephrosis or masses seen Left Kidney: No hydronephrosis or masses seen Upper IVC: Appears wnl Abd Aorta: Proximal segment appears ectatic. Iliacs were obscured. IMPRESSION: 1. Fatty infiltration of the liver
[2022-09-02 21:26] LABS: ALT 29 U/L (8-44); AST 20 U/L (13-35)
== END | disposition home or self-care (01) ==
LOC: RADUSWWP 13:27
PROVIDERS: ATTEND Family Medicine
DX: K76.0 Fatty (change of) liver, not elsewhere classified (principal); R74.8 Abnormal levels of other serum enzymes
CPT/HCPCS: 36415; 76700; 84450; 84460